=== PATIENT | female | born 1985 | race Caucasian/White ===

== ENCOUNTER 2025-06-29 07:21 | Emergency (ER) | payer OTHER ==
[~2025-06-29] VITALS: Ht 152.4 cm; Wt 85.7 kg
[2025-06-29 07:38] VITALS: BP 133/91
[2025-06-29 07:58] LABS: *BLOOD, URINE 3+ (NEGATIVE); *CLARITY,URINE TURBID (CLEAR); *COLOR,URINE DARK YELLOW (YELLOW); *KETONES,URINE TRACE (NEGATIVE); *UROBILINOGEN,URINE 1.0 E.U./dl (NORMAL); LEUKOCYTE ESTERASE ,URINE 1+ (NEGATIVE); NITRITE, URINE POSITIVE (NEGATIVE); UGLUCOSE NEGATIVE (NEGATIVE)
[2025-06-29 08:02] LABS: *BILIRUBIN,URIN 1+ (NEGATIVE); *PROTEIN,URINE 3+ (NEGATIVE)
[2025-06-29 08:04] LABS: SQUAMOUS EPITHELIAL CELL,UR FEW /HPF (NONE SEEN)
[2025-06-29 08:06] LABS: *URINE HCG, QUAL NEGATIVE (NEGATIVE)
[2025-06-29] MEDS ORDERED: PHEN-705 PO (08:30)
[2025-06-29] MEDS ORDERED: DOXY100T2 PO (08:30)
[2025-06-29 08:45] VITALS: BP 129/88; O2SAT 99
== END 2025-06-29 08:31 | disposition home or self-care (01) ==
LOC: ER 07:21
DX: N30.91 Cystitis, unspecified with hematuria (principal); E78.5 Hyperlipidemia, unspecified; Z88.0 Allergy status to penicillin
CPT/HCPCS: 84703; 87077; 87086; A4606; A4663